=== PATIENT | male | born 1945 ===

== ENCOUNTER → 2019-10-29 | Outpatient (CLI) | payer MEDICARE, OTHER ==
--- NOTE | 2019-10-29 13:01 | MR ---
EXAMINATION TYPE: MR lumbar spine wo con DATE OF EXAM: 10/29/2019 COMPARISON: MRI lumbar spine June 30, 2016 HISTORY: LBP, BLE numbness TECHNIQUE: Multiplanar, multisequence imaging of the lumbar spine is performed without IV contrast. FINDINGS: Sagittal images of the lumbar spine show vertebral body height to remain satisfactory. Pers istent grade 1 anterolisthesis L5 on S1. Multilevel disc desiccation. Persistent moderate disc space narrowing and vacuum disc phenomenon L5-S1 level with Modic type II endplate changes and severe anter ior spurring The conus medullaris is stable in position ending superior L2 level without abnormal sig nal. Stable mild multilevel anterior spurring. Axial images show through T12-L1 and L1-L2 level to appear within normal limits. Axial images at L2-L3 level show mild broad disc bulge without spinal canal is preserved and bilatera l neural foramina are patent. No significant change from prior. Axial images at L3-L4 level show mild broad disc bulge along with mild facet degenerative changes tai aterally. Spinal canal is preserved. Bilateral neural foramina are patent. No significant change from prior. Axial images at L4-L5 level shows moderate broad-based disc bulge along with [id number] facet d egenerative changes and ligamentum flavum hypertrophy. Spinal canal is preserved. Bilateral neural fo ramina are patent. No significant change from prior. Axial images at L5-S1 level show [id number] facet degenerative changes bilaterally. The spondyl olisthesis with broad disc bulge. There is some increased prominence of epidural fat at this level re demonstrated. There is severe bilateral neural foraminal narrowing encroaching on both L5 nerves sagi ttal image 13 on the right and 4 on the left, no significant change from prior. No suspicious incidental retroperitoneal finding. IMPRESSION: Multilevel degenerative change with persistent spondylolisthesis and most prominent degen erative change L5-S1 level where there is focal encroachment on bilateral L5 nerves. No significant c hange or progression from prior MRI.
== END | disposition home or self-care (01) ==
LOC: RADMRIMAIN 12:12
PROVIDERS: ATTEND Physician Assistant Medical
DX: M43.17 Spondylolisthesis, lumbosacral region (principal); M47.817 Spondylosis without myelopathy or radiculopathy, lumbosacral region
CPT/HCPCS: 72148

== ENCOUNTER 2021-10-28 05:39 | Emergency (ER) | payer MEDICARE, OTHER ==
[2021-10-28] MEDS ORDERED: SODIUM CHLORIDE 0.9% 1,000 ML IV STA (06:16)
[2021-10-28] MEDS ORDERED: ACETAMINOPHEN TAB 325 MG TAB PO STA (06:25)
--- NOTE | 2021-10-28 06:27 | ED ---
General Adult HPI - General Source: patient, family Mode of arrival: wheelchair Limitations: no limitations <Luis Marshall - Last Filed: 10/28/21 08:00> <Zaynab Mckeon - Last Filed: 10/29/21 22:34> - General Chief complaint: Weakness Stated complaint: Fall Time Seen by Provider: 10/28/21 06:10 - History of Present Illness Initial comments: 76-year-old male with a past medical history of diabetes mellitus, hyp erlipidemia presents to the emergency room for a chief complaint of this. Family member reports that for the past 2 days patient is weak. He has had 2 falls now. He had another this morning around 3 AM. Around 4 AM his called family to come get him up. States his legs have been weak. No fevers. No other symptoms.Patient has no other complaints at this time including shortness of breath, chest pain, abdominal pain, nausea or vomiting, headache, or visual changes. (Luis Marshall) - Related Data Allergies Allergy/AdvReac Type Severity Reaction Status Date / Time No Known Allergies Allergy Verified 10/28/21 05:48 Review of Systems ROS Other: All systems not noted in ROS Statement are negative. <Luis Marshall - Last Filed: 10/28/21 08:00> ROS Other: All systems not noted in ROS Statement are negative. <Zaynab Mckeon - Last Filed: 10/29/21 22:34> ROS Statement: Those systems with pertinent positive or pertinent negative responses have been documented in the HPI. Past Medical History Past Medical History: Diabetes Mellitus, Hyperlipidemia History of Any Multi-Drug Resistant Organisms: None Reported Additional Past Surgical History / Comment(s): eye surgery Past Psychological History: No Psychological Hx Reported Smoking Status: Former smoker Past Alcohol Use History: Occasional Past Drug Use History: None Reported <Luis Marshall - Last Filed: 10/28/21 08:00> General Exam Limitations: no limitations General appearance: alert, in no apparent distress Head exam: Present: atraumatic Eye exam: Present: normal appearance, PERRL, EOMI. Absent: scleral icterus, conjunctival injection ENT exam: Present: normal exam, mucous membranes moist Neck exam: Present: normal inspection, full ROM. Absent: tenderness Respiratory exam: Present: normal lung sounds bilaterally. Absent: respiratory distress, wheezes Cardiovascular Exam: Present: regular rate, normal rhythm, normal heart sounds GI/Abdominal exam: Present: soft, normal bowel sounds. Absent: distended, tenderness Extremities exam: Present: full ROM (Left knee). Absent: tenderness (L knee), joint swelling <Luis Marshall - Last Filed: 10/28/21 08:00> Course Vital Signs 10/28/21 10/28/21 10/28/21 05:43 06:56 09:14 Temperature 99 F 98.6 F Pulse Rate 111 H 98 88 Respiratory 22 18 18 Rate Blood Pressure 126/66 149/79 137/62 O2 Sat by Pulse 96 97 98 Oximetry Medical Decision Making - Lab Data Result diagrams: 10/28/21 06:04 10/28/21 06:04 <Luis Marshall - Last Filed: 10/28/21 08:00> - Lab Data Result diagrams: 10/28/21 06:04 10/28/21 06:04 <Zaynab Mckeon - Last Filed: 10/29/21 22:34> - Medical Decision Making Vitals are stable. Patient is well-appearing. EKG shows a sinus tachycardia. This did improve throughout his stay. CBC CMP is unremarkable. Actiq as elevated likely secondary to dehydration, patient given a liter of fluid. Positive ketones and urine is also likely secondary to dehydration. COVID-19 is detected. Patient does request antibody infusion. I had a lengthy discussion with family. They are able to care for patient at home. It if patient has worsening symptoms or is having more falls at home he will need to come back to the emergency room. We will try to write a prescription for a walker. They will follow up with primary care. (Luis Marshall) I was available for consultation in the emergency department. The history and physical exam were done by the midlevel provider. I was consulted for this patients care. I reviewed the case with the midlevel provider and based on their presentation of the patient, I agree with the assessment, medical decision making and plan of care as documented. Chart was dictated using [employer] dictation software. Attempts were made to correct any dictation errors however some typographical errors may persist. Patient was seen during a national state of emergency due to the Covid-19 pandemic. (Zaynab Mckeon) - Lab Data Lab Results 10/28/21 10/28/21 10/28/21 Range/Units 06:04 06:04 06:04 WBC 5.5 (3.8-10.6) k/uL RBC 4.93 (4.30-5.90) m/uL Hgb 15.0 (13.0-17.5) gm/dL Hct 45.0 (39.0-53.0) % MCV 91.3 (80.0-100.0) fL MCH 30.4 (25.0-35.0) pg MCHC 33.3 (31.0-37.0) g/dL RDW 13.2 (11.5-15.5) % Plt Count 171 (150-450) k/uL MPV 7.6 Neutrophils % 79 % Lymphocytes % 14 % Monocytes % 6 % Eosinophils % 1 % Basophils % 0 % Neutrophils # 4.4 (1.3-7.7) k/uL Lymphocytes # 0.8 L (1.0-4.8) k/uL Monocytes # 0.3 (0-1.0) k/uL Eosinophils # 0.1 (0-0.7) k/uL Basophils # 0.0 (0-0.2) k/uL PT 10.8 (9.0-12.0) sec INR 1.0 (<1.2) APTT 24.7 (22.0-30.0) sec Sodium 135 L (137-145) mmol/L Potassium 3.9 (3.5-5.1) mmol/L Chloride 98 (98-107) mmol/L Carbon Dioxide 26 (22-30) mmol/L Anion Gap 11 mmol/L BUN 10 (9-20) mg/dL Creatinine 1.00 (0.66-1.25) mg/dL Est GFR (CKD-EPI)AfAm 84 (>60 ml/min/1.73 sqM) Est GFR (CKD-EPI)NonAf 73 (>60 ml/min/1.73 sqM) Glucose 152 H (74-99) mg/dL Lactic Ac Sepsis Rflx Plasma Lactic Acid Sukhwinder (0.7-2.0) mmol/L Calcium 8.5 (8.4-10.2) mg/dL Magnesium 2.0 (1.6-2.3) mg/dL Total Bilirubin 0.8 (0.2-1.3) mg/dL AST 29 (17-59) U/L ALT 22 (4-49) U/L Alkaline Phosphatase 92 (38-126) U/L Creatine Kinase 209 H (55-170) U/L Troponin I (0.000-0.034) ng/mL Total Protein 7.4 (6.3-8.2) g/dL Albumin 4.1 (3.5-5.0) g/dL Urine Color Urine Appearance (Clear) Urine pH (5.0-8.0) Ur Specific Tavernier (1.001-1.035) Urine Protein (Negative) Urine Glucose (UA) (Negative) Urine Ketones (Negative) Urine Blood (Negative) Urine Nitrite (Negative) Urine Bilirubin (Negative) Urine Urobilinogen (<2.0) mg/dL Ur Leukocyte Esterase (Negative) Coronavirus (PCR) (Not Detectd) 10/28/21 10/28/21 10/28/21 Range/Units 06:04 06:04 06:40 WBC (3.8-10.6) k/uL RBC (4.30-5.90) m/uL Hgb (13.0-17.5) gm/dL Hct (39.0-53.0) % MCV (80.0-100.0) fL MCH (25.0-35.0) pg MCHC (31.0-37.0) g/dL RDW (11.5-15.5) % Plt Count (150-450) k/uL MPV Neutrophils % % Lymphocytes % % Monocytes % % Eosinophils % % Basophils % % Neutrophils # (1.3-7.7) k/uL Lymphocytes # (1.0-4.8) k/uL Monocytes # (0-1.0) k/uL Eosinophils # (0-0.7) k/uL Basophils # (0-0.2) k/uL PT (9.0-12.0) sec INR (<1.2) APTT (22.0-30.0) sec Sodium (137-145) mmol/L Potassium (3.5-5.1) mmol/L Chloride (98-107) mmol/L Carbon Dioxide (22-30) mmol/L Anion Gap mmol/L BUN (9-20) mg/dL Creatinine (0.66-1.25) mg/dL Est GFR (CKD-EPI)AfAm (>60 ml/min/1.73 sqM) Est GFR (CKD-EPI)NonAf (>60 ml/min/1.73 sqM) Glucose (74-99) mg/dL Lactic Ac Sepsis Rflx Plasma Lactic Acid Sukhwinder 3.0 H* (0.7-2.0) mmol/L Calcium (8.4-10.2) mg/dL Magnesium (1.6-2.3) mg/dL Total Bilirubin (0.2-1.3) mg/dL AST (17-59) U/L ALT (4-49) U/L Alkaline Phosphatase (38-126) U/L Creatine Kinase (55-170) U/L Troponin I <0.012 (0.000-0.034) ng/mL Total Protein (6.3-8.2) g/dL Albumin (3.5-5.0) g/dL Urine Color Yellow Urine Appearance Clear (Clear) Urine pH 5.0 (5.0-8.0) Ur Specific Tavernier 1.022 (1.001-1.035) Urine Protein Trace H (Negative) Urine Glucose (UA) Negative (Negative) Urine Ketones 1+ H (Negative) Urine Blood Negative (Negative) Urine Nitrite Negative (Negative) Urine Bilirubin Negative (Negative) Urine Urobilinogen <2.0 (<2.0) mg/dL Ur Leukocyte Esterase Negative (Negative) Coronavirus (PCR) (Not Detectd) 10/28/21 10/28/21 Range/Units 07:00 07:34 WBC (3.8-10.6) k/uL RBC (4.30-5.90) m/uL Hgb (13.0-17.5) gm/dL Hct (39.0-53.0) % MCV (80.0-100.0) fL MCH (25.0-35.0) pg MCHC (31.0-37.0) g/dL RDW (11.5-15.5) % Plt Count (150-450) k/uL MPV Neutrophils % % Lymphocytes % % Monocytes % % Eosinophils % % Basophils % % Neutrophils # (1.3-7.7) k/uL Lymphocytes # (1.0-4.8) k/uL Monocytes # (0-1.0) k/uL Eosinophils # (0-0.7) k/uL Basophils # (0-0.2) k/uL PT (9.0-12.0) sec INR (<1.2) APTT (22.0-30.0) sec Sodium (137-145) mmol/L Potassium (3.5-5.1) mmol/L Chloride (98-107) mmol/L Carbon Dioxide (22-30) mmol/L Anion Gap mmol/L BUN (9-20) mg/dL Creatinine (0.66-1.25) mg/dL Est GFR (CKD-EPI)AfAm (>60 ml/min/1.73 sqM) Est GFR (CKD-EPI)NonAf (>60 ml/min/1.73 sqM) Glucose (74-99) mg/dL Lactic Ac Sepsis Rflx Y Plasma Lactic Acid Sukhwinder (0.7-2.0) mmol/L Calcium (8.4-10.2) mg/dL Magnesium (1.6-2.3) mg/dL Total Bilirubin (0.2-1.3) mg/dL AST (17-59) U/L ALT (4-49) U/L Alkaline Phosphatase (38-126) U/L Creatine Kinase (55-170) U/L Troponin I (0.000-0.034) ng/mL Total Protein (6.3-8.2) g/dL Albumin (3.5-5.0) g/dL Urine Color Urine Appearance (Clear) Urine pH (5.0-8.0) Ur Specific Tavernier (1.001-1.035) Urine Protein (Negative) Urine Glucose (UA) (Negative) Urine Ketones (Negative) Urine Blood (Negative) Urine Nitrite (Negative) Urine Bilirubin (Negative) Urine Urobilinogen (<2.0) mg/dL Ur Leukocyte Esterase (Negative) Coronavirus (PCR) Detected A (Not Detectd) Disposition Is patient prescribed a controlled substance at d/c from ED?: No Time of Disposition: 08:00 <Luis Marshall P - Last Filed: 10/28/21 08:00> <Zaynab Mckeon - Last Filed: 10/29/21 22:34> Clinical Impression: COVID-19, Weakness, Dehydration Disposition: HOME SELF-CARE Condition: Good Instructions (If sedation given, give patient instructions): Coronavirus Disease 2019 (COVID-19) Additional Instructions: Please give Motrin and Tylenol for fever or pain. Encourage patient to drink plenty of fluids. Follow up with primary care. Return to the emergency room for any worsening symptoms. Referrals: Rafy Marr III, MD [STAFF PHYSICIAN] - 1-2 days
[2021-10-28 06:45] LABS: Albumin 4.1 g/dL (3.5-5.0); Calcium 8.5 mg/dL (8.4-10.2); Potassium 3.9 mmol/L (3.5-5.1); Total Bilirubin 0.8 mg/dL (0.2-1.3); Total Protein 7.4 g/dL (6.3-8.2)
[2021-10-28 06:46] LABS: Basophils % (A) 0 %; Eosinophils # (A) 0.1 k/uL (0-0.7); Eosinophils % (A) 1 %; Lymphocytes # (A) 0.8 k/uL (1.0-4.8); Lymphocytes % (A) 14 %; MCH 30.4 pg (25.0-35.0); MCHC 33.3 g/dL (31.0-37.0); MCV 91.3 fL (80.0-100.0); Mean Platelet Volume 7.6; Monocytes # (A) 0.3 k/uL (0-1.0); Monocytes % (A) 6 %; Neutrophils # (A) 4.4 k/uL (1.3-7.7); Neutrophils % (A) 79 %; Platelet Count 171 k/uL (150-450); RBC 4.93 m/uL (4.30-5.90); RDW 13.2 % (11.5-15.5); WBC 5.5 k/uL (3.8-10.6)
[2021-10-28 06:51] LABS: Partial Thromboplastin Time 24.7 sec (22.0-30.0); Prothrombin Time 10.8 sec (9.0-12.0)
[2021-10-28 06:57] VITALS: RESP 18
[2021-10-28 06:59] LABS: Appearance,Urine Clear (Clear); Bilirubin,Urine Negative (Negative); Blood,Urine Negative (Negative); Color,Urine Yellow; Glucose,Urine (UA) Negative (Negative); Ketones,Urine 1+ (Negative); Leukocyte Esterase,Urine Negative (Negative); Nitrite,Urine Negative (Negative); Protein,Urine Trace (Negative); Specific Gravity,Urine 1.022 (1.001-1.035); Urobilinogen,Urine <2.0 mg/dL (<2.0)
--- NOTE | 2021-10-28 06:59 | XR ---
EXAMINATION TYPE: XR chest 2V DATE OF EXAM: 10/28/2021 COMPARISON: NONE HISTORY: Weakness TECHNIQUE: 2 view FINDINGS: There is no heart failure or confluent pneumonic infiltrate. Costophrenic angles are fairly clear. There are chest leads. Bony thorax is intact. IMPRESSION: No active cardiopulmonary disease.
--- NOTE | 2021-10-28 07:00 | XR ---
EXAMINATION TYPE: XR knee complete LT DATE OF EXAM: 10/28/2021 COMPARISON: NONE HISTORY: Knee pain TECHNIQUE: 3 views FINDINGS: There is no evidence of fracture nor dislocation. Joint spaces are fairly normal. There is some spurring on the superior patella. IMPRESSION: Mild patellar spurring. No fracture.
[2021-10-28] MEDS ORDERED: BAMLANIVIMAB (EUA) 700 MG, ETESEVIMAB (EUA) 1,400 MG in SODIUM CHLORIDE 0.9% 100 ML IVPB ONE (08:15)
[2021-10-28] MEDS ORDERED: SODIUM CHLORIDE 0.9% 50 ML IVPB ONE (08:15)
[2021-10-28 09:15] VITALS: BP 137/62; PULSE 88; TEMP 98.6
== END 2021-10-28 10:08 | disposition home or self-care (01) ==
LOC: EC 05:39
DX: U07.1 COVID-19 (principal); R53.1 Weakness; E86.0 Dehydration; E11.9 Type 2 diabetes mellitus without complications; E78.5 Hyperlipidemia, unspecified; Z87.891 Personal history of nicotine dependence
CPT/HCPCS: 99285; M0245; 36415; 71046; 80053; 81003; 82550; 83605; 83735; 84484; 85025; 85610; 85730; 87635; 93005

== ENCOUNTER 2024-02-19 20:12 | Observation (INO) | payer MEDICARE, OTHER ==
[2024-02-19 20:31] LABS: Glucose,Whole Blood 134 mg/dL (70-110)
--- NOTE | 2024-02-19 20:36 | ED ---
Neuro HPI - General Chief Complaint: Neuro Symptoms/Deficit Stated Complaint: Possible stroke Time Seen by Provider: 02/19/24 20:28 Source: patient, family, RN notes reviewed, old records reviewed Mode of arrival: ambulatory Limitations: language barrier - History of Present Illness Is the patient presenting with stroke symptoms?: Yes -: hour(s) Initial Comments: This is a 78-year-old male to the ER for evaluation patient presents today for possible CVA. Patient was noted by family that after he went to the bathroom tonight he began to have slurred speech and altered mental status. Patient symptoms are improving on arrival to the ER does have history of high blood pressure and high cholesterol no prior history of CVA Location: speech, dysarthria, altered, other (Confusion) History of same: No Place: home Severity: mild Quality: weak, numb Improves With: time Worsens With: none Context: sudden onset Associated Symptoms: confusion - Related Data Allergies/Adverse Reactions: Allergies Allergy/AdvReac Type Severity Reaction Status Date / Time No Known Allergies Allergy Verified 10/28/21 05:48 Review of Systems ROS Statement: Those systems with pertinent positive or pertinent negative responses have been documented in the HPI. ROS Other: All systems not noted in ROS Statement are negative. General Exam Limitations: language barrier General appearance: alert, in no apparent distress Head exam: Present: atraumatic, normocephalic, normal inspection Eye exam: Present: normal appearance, PERRL, EOMI. Absent: scleral icterus, con junctival injection, periorbital swelling ENT exam: Present: normal exam, mucous membranes moist Neck exam: Present: normal inspection. Absent: tenderness, meningismus, lymphadenopathy Respiratory exam: Present: normal lung sounds bilaterally. Absent: respiratory distress, wheezes, rales, rhonchi, stridor Cardiovascular Exam: Present: regular rate, normal rhythm, normal heart sounds. Absent: systolic murmur, diastolic murmur, rubs, gallop, clicks GI/Abdominal exam: Present: soft, normal bowel sounds. Absent: distended, tenderness, guarding, rebound, rigid Extremities exam: Present: normal inspection, full ROM, normal capillary refill. Absent: tenderness, pedal edema, joint swelling, calf tenderness Back exam: Present: normal inspection Neurological exam: Present: alert, oriented X3, CN II-XII intact Psychiatric exam: Present: normal affect, normal mood Skin exam: Present: warm, dry, intact, normal color. Absent: rash Stroke MDM - Lab Data Result diagrams: 02/19/24 20:31 02/19/24 20:31 Lab Results 02/19/24 02/19/24 02/19/24 Range/Units 20:29 20:31 20:31 WBC 8.2 (3.8-10.6) k/uL RBC 5.53 (4.30-5.90) m/uL Hgb 16.3 (13.0-17.5) gm/dL Hct 49.5 (39.0-53.0) % MCV 89.4 (80.0-100.0) fL MCH 29.4 (25.0-35.0) pg MCHC 32.9 (31.0-37.0) g/dL RDW 13.3 (11.5-15.5) % Plt Count 193 (150-450) k/uL MPV 7.4 Neutrophils % 63 % Lymphocytes % 28 % Monocytes % 4 % Eosinophils % 3 % Basophils % 1 % Neutrophils # 5.2 (1.3-7.7) k/uL Lymphocytes # 2.3 (1.0-4.8) k/uL Monocytes # 0.4 (0-1.0) k/uL Eosinophils # 0.2 (0-0.7) k/uL Basophils # 0.1 (0-0.2) k/uL PT 11.2 (10.0-12.5) sec INR 1.0 (<1.2) APTT 25.2 (22.0-30.0) sec Sodium (137-145) mmol/L Potassium (3.5-5.1) mmol/L Chloride (98-107) mmol/L Carbon Dioxide (22-30) mmol/L Anion Gap mmol/L BUN (9-20) mg/dL Creatinine (0.66-1.25) mg/dL Est GFR (CKD-EPI)AfAm (>60 ml/min/1.73 sqM) Est GFR (CKD-EPI)NonAf (>60 ml/min/1.73 sqM) Glucose (74-99) mg/dL POC Glucose (mg/dL) 134 H (70-110) mg/dL POC Glu [employer] Buyer ID Pedro, Priyank Calcium (8.4-10.2) mg/dL Total Bilirubin (0.2-1.3) mg/dL AST (17-59) U/L ALT (4-49) U/L Alkaline Phosphatase (38-126) U/L Creatine Kinase (55-170) U/L Troponin I (0.000-0.034) ng/mL Total Protein (6.3-8.2) g/dL Albumin (3.5-5.0) g/dL 02/19/24 02/19/24 Range/Units 20:31 20:31 WBC (3.8-10.6) k/uL RBC (4.30-5.90) m/uL Hgb (13.0-17.5) gm/dL Hct (39.0-53.0) % MCV (80.0-100.0) fL MCH (25.0-35.0) pg MCHC (31.0-37.0) g/dL RDW (11.5-15.5) % Plt Count (150-450) k/uL MPV Neutrophils % % Lymphocytes % % Monocytes % % Eosinophils % % Basophils % % Neutrophils # (1.3-7.7) k/uL Lymphocytes # (1.0-4.8) k/uL Monocytes # (0-1.0) k/uL Eosinophils # (0-0.7) k/uL Basophils # (0-0.2) k/uL PT (10.0-12.5) sec INR (<1.2) APTT (22.0-30.0) sec Sodium 136 L (137-145) mmol/L Potassium 4.2 (3.5-5.1) mmol/L Chloride 99 (98-107) mmol/L Carbon Dioxide 29 (22-30) mmol/L Anion Gap 8 mmol/L BUN 10 (9-20) mg/dL Creatinine 0.76 (0.66-1.25) mg/dL Est GFR (CKD-EPI)AfAm >90 (>60 ml/min/1.73 sqM) Est GFR (CKD-EPI)NonAf 88 (>60 ml/min/1.73 sqM) Glucose 147 H (74-99) mg/dL POC Glucose (mg/dL) (70-110) mg/dL POC Glu Fashion Buyer ID Calcium 9.0 (8.4-10.2) mg/dL Total Bilirubin 0.4 (0.2-1.3) mg/dL AST 22 (17-59) U/L ALT 19 (4-49) U/L Alkaline Phosphatase 123 (38-126) U/L Creatine Kinase 68 (55-170) U/L Troponin I <0.012 (0.000-0.034) ng/mL Total Protein 7.0 (6.3-8.2) g/dL Albumin 4.1 (3.5-5.0) g/dL - NIH Stroke Scale 1a. Level of Consciousness: (0) alert 1b. LOC Questions: (0) answers correctly 1c. LOC Commands: (0) performs tasks correctly 2. Best Gaze: (0) normal 3. Visual: (0) no visual loss 4. Facial Palsy: (0) normal symmetrical movement 5a. Motor Arm Left: (0) no drift 5b. Motor Arm Right: (0) no drift 6a. Motor Leg Left: (0) no drift 6b. Motor Leg Right: (0) no drift 7. Limb Ataxia: (0) absent 8. Sensory: (0) normal 9. Best Language: (0) no aphasia 10. Dysarthria: (0) normal 11. Extinction/Inattention: (0) no abnormality - Thrombolytic Inclusion/Exclusion Thrombolytic Inclusion Criteria: Symptom Onset < 4.5 h - Medical Decision Making 78 male with hide cholesterol diabetes coming in for slurred speech with confusion. Patient has improvement and resolution of symptoms here in the ER normal imaging but will be admitted for further evaluation, no recommendations by neuro interventionalists - Radiology Data Radiology results: report reviewed (ET brain CTA head neck negative for acute disease), image reviewed - EKG Data -: EKG Interpreted by Me (EKG is sinus tachycardia 106 GA 191 QRS 84 QTc 476) Past Medical History Past Medical History: Diabetes Mellitus, Hyperlipidemia History of Any Multi-Drug Resistant Organisms: None Reported Additional Past Surgical History / Comment(s): eye surgery Past Psychological History: No Psychological Hx Reported Smoking Status: Former smoker Past Alcohol Use History: Occasional Past Drug Use History: None Reported Course Vital Signs 02/19/24 02/19/24 02/19/24 20:15 20:28 20:38 Temperature 98.4 F Pulse Rate 77 104 H 100 Respiratory 18 20 19 Rate Blood Pressure 180/89 165/117 140/81 O2 Sat by Pulse 97 98 97 Oximetry 02/19/24 02/19/24 02/19/24 21:06 21:20 21:40 Temperature Pulse Rate 107 H 87 98 Respiratory 18 18 18 Rate Blood Pressure 149/87 138/107 144/82 O2 Sat by Pulse 96 97 97 Oximetry 02/19/24 02/19/24 02/19/24 21:50 22:00 22:10 Temperature Pulse Rate 98 100 97 Respiratory 18 18 19 Rate Blood Pressure 144/77 141/79 O2 Sat by Pulse 96 98 97 Oximetry 02/19/24 22:20 Temperature Pulse Rate 96 Respiratory 19 Rate Blood Pressure 151/72 O2 Sat by Pulse 99 Oximetry - Reevaluation(s) Reevaluation #1: 02/19/24 23:23 Medical records reviewed Reevaluation #2: 02/19/24 23:23 Patient symptom remained improved Reevaluation #3: 02/19/24 23:23 Patient and family informed of results questions answered prefer observation Reevaluation #4: 02/19/24 23:23 Was pt. sent in by a medical professional or institution (, PA, READING PROFESSOR, urgent care, hospital, or alf...) When possible be specific @ -no Did you speak to anyone other than the patient for history (EMS, parent, family, police, friend...)? What history was obtained from this source @ -no Did you review nursing and triage notes (agree or disagree)? Why? @ -agree Are old charts reviewed (outside hosp., previous admission, EMS record, old EKG, old radiological studies, urgent care reports/EKG's, alf records)? Report findings @ -yes Differential Diagnosis (chest pain, altered mental status, abdominal pain women, abdominal pain men, vaginal bleeding, weakness, fever, dyspnea, syncope, headache, dizziness, GI bleed, back pain, seizure, CVA, palpatations, mental health, musculoskeletal)? @ -prior EKG interpreted by me (3pts min.). @ -yes X-rays interpreted by me (1pt min.). @ -yes negative for acute disease CT interpreted by me (1pt min.). @ -no U/S interpreted by me (1pt. min.). @ -no What testing was considered but not performed or refused? (CT, X-rays, U/S, labs)? Why? @ -none What meds were considered but not given or refused? Why? @ -none Did you discuss the management of the patient with other professionals (professionals i.e. , PA, READING PROFESSOR, lab, RT, psych nurse, child protective services social worker, master technician, teacher, custody officer, counseling case manager)? Give summary @ -no Was smoking cessation discussed for >3mins.? @ -no Was critical care preformed (if so, how long)? @ -no Were there social determinants of health that impacted care today? How? (Homelessness, low income, unemployed, alcoholism, drug addiction, transportation, low edu. Level, literacy, decrease access to med. care, intermediate, rehab)? @ -none Was there de-escalation of care discussed even if they declined (Discuss DNR or withdrawal of care, Hospice)? DNR status @ -no What co-morbidities impacted this encounter? (DM, HTN, Smoking, COPD, CAD, Cancer, CVA, ARF, Chemo, Hep., AIDS, mental health diagnosis, sleep apnea, morbid obesity)? @ -none Was patient admitted / discharged? Hospital course, mention meds given and route, prescriptions, significant lab abnormalities, going to OR and other pertinent info. @ - Undiagnosed new problem with uncertain prognosis? @ -no Drug Therapy requiring intensive monitoring for toxicity (Heparin, Nitro, Insulin, Cardizem)? @ -no Were any procedures done? @ -no Diagnosis/symptom? @ - Acute, or Chronic, or Acute on Chronic? @ -Acute Uncomplicated (without systemic symptoms) or Complicated (systemic symptoms)? @ -Complicated Side effects of treatment? @ -no Exacerbation, Progression, or Severe Exacerbation? @ -exacerbation Poses a threat to life or bodily function? How? (Chest pain, USA, OR, pneumonia, PE, COPD, DKA, ARF, appy, cholecystitis, CVA, Diverticulitis, Homicidal, Suicidal, threat to staff... and all critical care pts) @ -yes Reevaluation #5: Differential CVA Ischemic stroke, hemorrhagic stroke, brain tumor, atypical migraine, Wernicke's encephalopathy, seizure, multiple sclerosis, meningitis, encephalitis, hypoglycemia, Guillain-Ramirez, electrolytes disturbance, myasthenia gravis.... This is not meant to be an all-inclusive list - Consultations Consultation #1: Spoke with EM who agrees to admit this patient Consultation #2: Spoke with neuro interventionalists on-call who recommend no recommendations Critical Care Time Critical Care Time: Yes Total Critical Care Time: 31 Disposition Clinical Impression: Transient cerebral ischemia Disposition: ADMITTED IP TO THIS [facility] Condition: Serious Is patient prescribed a controlled substance at d/c from ED?: No Referrals: None,Stated [Primary Care Provider] - 1-2 days Time of Disposition: 22:30
[2024-02-19] MEDS: SODIUM CHLORIDE 0.9% 1,000 ML IV STA (20:40)
[2024-02-19 20:44] LABS: Basophils # (A) 0.1 k/uL (0-0.2); Basophils % (A) 1 %; Eosinophils # (A) 0.2 k/uL (0-0.7); Eosinophils % (A) 3 %; HCT 49.5 % (39.0-53.0); HGB 16.3 gm/dL (13.0-17.5); Lymphocytes # (A) 2.3 k/uL (1.0-4.8); Lymphocytes % (A) 28 %; MCH 29.4 pg (25.0-35.0); MCHC 32.9 g/dL (31.0-37.0); MCV 89.4 fL (80.0-100.0); Mean Platelet Volume 7.4; Monocytes # (A) 0.4 k/uL (0-1.0); Monocytes % (A) 4 %; Neutrophils # (A) 5.2 k/uL (1.3-7.7); Neutrophils % (A) 63 %; Platelet Count 193 k/uL (150-450); RBC 5.53 m/uL (4.30-5.90); RDW 13.3 % (11.5-15.5); WBC 8.2 k/uL (3.8-10.6)
[2024-02-19 20:53] LABS: Partial Thromboplastin Time 25.2 sec (22.0-30.0); Prothrombin Time 11.2 sec (10.0-12.5)
--- NOTE | 2024-02-19 21:03 | CT ---
EXAMINATION TYPE: CT brain wo con DATE OF EXAM: 02/19/2024 COMPARISON: None HISTORY: Neuro deficit, acute, stroke suspected CT DLP: 1246.6 mGycm Automated exposure control for dose reduction was used. Findings: The ventricles, basal cisterns and sulci over the convexities are within normal limits for the patien t's age and there is no mass effect or shift of midline structures. There is mild to moderate diffuse decreased density in the periventricular white matter consistent wi th chronic ischemic white matter demyelination. There is mild punctate calcification of the basal lj glia.. There is no acute intra or extra-axial hemorrhage. The posterior fossa including the brainstem, fourth ventricle and cerebellar pontine angles appear no rmal. Intraorbital contents appear normal and symmetric. Visualized paranasal sinuses and mastoid air cells are well aerated. The calvarium is intact. IMPRESSION: 1. No acute bleed or mass effect. 2. Mild to moderate age-appropriate senescent changes.
--- NOTE | 2024-02-19 21:11 | XR ---
EXAMINATION TYPE: XR chest 2V DATE OF EXAM: 02/19/2024 COMPARISON: 10/28/2021 HISTORY: Altered mental status TECHNIQUE: Frontal and lateral views of the chest are obtained. FINDINGS: There is no focal air space opacity, pleural effusion, or pneumothorax seen. The cardiac silhouette size is within normal limits. The osseous structures are intact. IMPRESSION: No acute cardiopulmonary process.
--- NOTE | 2024-02-19 21:29 | CT ---
EXAMINATION TYPE: CT angio head neck DATE OF EXAM: 02/19/2024 HISTORY: Neuro deficit, acute, stroke suspected. left side facial droop, slurred speech COMPARISON: None CT DLP: 491.7 mGycm. Automated Exposure Control for Dose Reduction was Utilized. TECHNIQUE: CTA scan of the head and neck is performed with IV Contrast, patient injected with 65ml m L of Isovue 300, axial images are obtained, coronal and sagittal reformatted images are reviewed. 3D reconstructed images are created on an independent workstation and reviewed. FINDINGS: The brachiocephalic origins are widely patent and no significant stenosis. There is no significant stenosis of the common or internal carotid arteries within the neck. There is no stenosis of the vertebral arteries. Intracranially, there is no stenosis, segmental occlusion, sizable aneurysm sac or vascular malformat ion. IMPRESSION:. No significant abnormality seen. NASCET criteria was used in interpretation of this exam?
[2024-02-19 21:36] LABS: ALT 19 U/L (4-49); AST 22 U/L (17-59); African American GFR (CKD) >90 (>60 ml/min/1.73 sqM); Albumin 4.1 g/dL (3.5-5.0); Alkaline Phosphatase 123 U/L (38-126); Anion Gap 8 mmol/L; Blood Urea Nitrogen 10 mg/dL (9-20); Carbon Dioxide 29 mmol/L (22-30); Chloride 99 mmol/L (98-107); Creatine Kinase 68 U/L (55-170); Glucose 147 mg/dL (74-99); Non-African American GFR(CKD) 88 (>60 ml/min/1.73 sqM); Potassium 4.2 mmol/L (3.5-5.1); Sodium 136 mmol/L (137-145); Total Bilirubin 0.4 mg/dL (0.2-1.3)
[2024-02-19] MEDS: ASPIRIN 325 MG TAB PO STA (23:00)
[2024-02-19] MEDS: SODIUM CHLORIDE 0.9% 1,000 ML IV SCH (23:01)
[2024-02-20] MEDS: ASPIRIN 325 MG TAB PO SCH (08:47)
[2024-02-20] MEDS ORDERED: DEXTROSE 50% SYRINGE 50 ML IVP PRN ×2 (10:06)
[2024-02-20 10:12] LABS: Glucose,Whole Blood 105 mg/dL (70-110)
[2024-02-20 11:52] LABS: Glucose,Whole Blood 112 mg/dL (70-110)
[2024-02-20] MEDS: INSULIN ASPART (NovoLOG) 100 UNIT/ML VIAL SQ SCH (11:52)
--- NOTE | 2024-02-20 12:48 | P.HPIM ---
History of Present Illness Patient presented with symptoms of slurred speech and altered mental status that lasted for about 10 minutes without any visual, hearing problems, weakness or sensory deficits. Patient takes statin at home his LDL is 48 does not smoke does not take any aspirin at home. Patient denied any fever chills headache photophobia. REVIEW OF SYSTEMS: CONSTITUTIONAL: No fever, no malaise, no fatigue. HEENT: No recent visual problems or hearing problems. Denied any sore throat. CARDIOVASCULAR: No chest pain, orthopnea, PND, no palpitations, no syncope. PULMONARY: No shortness of breath, no cough, no hemoptysis. GASTROINTESTINAL: No diarrhea, no nausea, no vomiting, no abdominal pain. NEUROLOGICAL: No headaches, no weakness, no numbness. HEMATOLOGICAL: Denies any bleeding or petechiae. GENITOURINARY: Denies any burning micturition, frequency, or urgency. MUSCULOSKELETAL/RHEUMATOLOGICAL: Denies any joint pain, swelling, or any muscle pain. ENDOCRINE: Denies any polyuria or polydipsia. The rest of the 14-point review of systems is negative. PHYSICAL EXAMINATION: GENERAL: The patient is alert and oriented x3, not in any acute distress. Well developed, well nourished. HEENT: Pupils are round and equally reacting to light. EOMI. No scleral icterus. No conjunctival pallor. Normocephalic, atraumatic. No pharyngeal erythema. No thyromegaly. CARDIOVASCULAR: S1 and S2 present. No murmurs, rubs, or gallops. PULMONARY: Chest is clear to auscultation, no wheezing or crackles. ABDOMEN: Soft, nontender, nondistended, normoactive bowel sounds. No palpable organomegaly. MUSCULOSKELETAL: No joint swelling or deformity. EXTREMITIES: No cyanosis, clubbing, or pedal edema. NEUROLOGICAL: No focal deficits were appreciated SKIN: No rashes. Assessment and plan -Possible TIA: Patient is undergoing evaluation for TIA so far CT angio of the head and neck and CT of the head are essentially within normal limits. N eurology evaluate the patient with recommending MRI and echocardiogram. Patient takes Lipitor at home and 81 mg of aspirin will be added after 24 hours of telemetry monitoring patient probably can be discharged maybe later today or earlier tomorrow patient's TIA was at 7 PM last night. -Hyperlipidemia -Diabetes mellitus: Hold off metformin, start on sliding scale insulin DVT prophylaxis: ambulation Past Medical History Past Medical History: Diabetes Mellitus, Hyperlipidemia History of Any Multi-Drug Resistant Organisms: None Reported Additional Past Surgical History / Comment(s): eye surgery Past Psychological History: No Psychological Hx Reported Smoking Status: Former smoker Past Alcohol Use History: Occasional Past Drug Use History: None Reported Medications and Allergies Home Medications Medication Instructions Recorded Confirmed Type Aspirin 81 mg PO DAILY #30 tab 02/20/24 Rx Atorvastatin [Lipitor] 10 mg PO HS 02/20/24 02/20/24 History Cyclobenzaprine [Flexeril] 5 mg PO DAILY 02/20/24 02/20/24 History Loratadine [Claritin] 10 mg PO DAILY 02/20/24 02/20/24 History Pregabalin [Lyrica] 75 mg PO DAILY 02/20/24 02/20/24 History metFORMIN HCL ER [Glucophage XR] 500 mg PO AC-BID 02/20/24 02/20/24 History Allergies Allergy/AdvReac Type Severity Reaction Status Date / Time No Known Allergies Allergy Verified 10/28/21 05:48 Physical Exam Vitals: Vital Signs Temp Pulse Resp BP Pulse Ox 02/20/24 11:51 78 18 126/76 98 02/20/24 10:09 98.0 F 82 17 136/77 99 02/20/24 09:01 77 19 141/72 97 02/20/24 08:50 97.9 F 81 20 137/74 98 02/20/24 06:00 80 19 130/74 02/20/24 05:30 79 18 144/76 96 02/20/24 05:00 84 16 139/101 94 L 02/20/24 04:00 81 18 130/66 02/20/24 03:00 84 18 127/67 96 02/20/24 02:40 91 21 127/67 96 02/20/24 02:30 86 13 120/79 96 02/20/24 02:20 120/79 98 02/20/24 02:10 92 120/79 97 02/20/24 02:00 89 129/69 02/20/24 01:50 84 129/69 94 L 02/20/24 01:40 91 129/69 95 02/20/24 01:30 88 118/62 97 02/20/24 01:20 97 118/62 96 02/20/24 01:10 118/62 94 L 02/20/24 01:00 96 19 160/100 95 02/20/24 00:30 114 H 18 105/66 98 02/20/24 00:00 95 19 144/77 96 02/19/24 23:30 99 18 160/86 98 02/19/24 23:00 100 18 135/74 98 02/19/24 22:30 95 18 151/72 98 02/19/24 22:20 96 19 151/72 99 02/19/24 22:10 97 19 141/79 97 02/19/24 22:00 100 18 98 02/19/24 21:50 98 18 144/77 96 02/19/24 21:40 98 18 144/82 97 02/19/24 21:20 87 18 138/107 97 02/19/24 21:06 107 H 18 149/87 96 02/19/24 20:38 100 19 140/81 97 02/19/24 20:28 104 H 20 165/117 98 02/19/24 20:15 98.4 F 77 18 180/89 97 Intake and Output 02/19/24 02/20/24 02/20/24 22:59 06:59 14:59 Other: Weight 104.326 kg Results CBC & Chem 7: 02/19/24 20:31 02/19/24 20:31 Labs: Abnormal Lab Results - Last 24 Hours (Table) 02/19/24 02/19/24 02/20/24 Range/Units 20:29 20:31 11:50 Sodium 136 L (137-145) mmol/L Glucose 147 H (74-99) mg/dL POC Glucose (mg/dL) 134 H 112 H (70-110) mg/dL
--- NOTE | 2024-02-20 13:02 | P.CNNES ---
History of Present Illness Consult date: 02/20/24 Requesting physician: Garry Rolon Reason for Consult: tia History of Present Illness: this is a 78-year-old gentleman who presented emergency department becausedifficulty. History is obtained from the patient's osowsryp-pj-ldn was at bedside. Patient is [place] speaking and his [id number] help with some of the translation. It seems yesterday around 7 is p.m. patient was talking gibberish not making any sense and the episode lasted 10-15 minutes. Also he had the brief slight worsening of low left lower extremity weakness which also improved the same time. Otherwise no additional neurological workup. He feels back to baseline. He denies any history of stroke. He has history of diabetes and hypercholesterolemia. He is not on any antiplatelets per family members but he is on statin. Some of the workup during his hospital visit consisted of: glucose is 147 lipid panel is triglyceride of 104, cholesterol is 113, LDLs 43 and HDL is [address] head is reported as no acute bleed or mass effect. Mild to moderate age appropriate senescent changes. I personally reviewed the CT and I agree there is no acute or subacute changes. CT angiography of the head and neck was reported as no significant abnormality seen. per ED physician NIH stroke scale was a 0. Code stroke was activated and it's documented the no recommendation by neuro- interventional last. I assume no IV thrombolytic since the patient's symptoms is resolved and the risk outweighed the benefit. Review of Systems Review of system: The 12 point system was reviewed and apparent positive and negative per HPI. Past Medical History Past Medical History: Diabetes Mellitus, Hyperlipidemia History of Any Multi-Drug Resistant Organisms: None Reported Additional Past Surgical History / Comment(s): eye surgery Past Psychological History: No Psychological Hx Reported Smoking Status: Former smoker Past Alcohol Use History: Occasional Past Drug Use History: None Reported Medications and Allergies Home Medications Medication Instructions Recorded Confirmed Type Aspirin 81 mg PO DAILY #30 tab 02/20/24 Rx Atorvastatin [Lipitor] 10 mg PO HS 02/20/24 02/20/24 History Cyclobenzaprine [Flexeril] 5 mg PO DAILY 02/20/24 02/20/24 History Loratadine [Claritin] 10 mg PO DAILY 02/20/24 02/20/24 History Pregabalin [Lyrica] 75 mg PO DAILY 02/20/24 02/20/24 History metFORMIN HCL ER [Glucophage XR] 500 mg PO AC-BID 02/20/24 02/20/24 History Allergies Allergy/AdvReac Type Severity Reaction Status Date / Time No Known Allergies Allergy Verified 10/28/21 05:48 Physical Examination - Vital Signs Vital Signs: Vital Signs Temp Pulse Resp BP Pulse Ox 02/20/24 11:51 78 18 126/76 98 02/20/24 10:09 98.0 F 82 17 136/77 99 02/20/24 09:01 77 19 141/72 97 02/20/24 08:50 97.9 F 81 20 137/74 98 02/20/24 06:00 80 19 130/74 02/20/24 05:30 79 18 144/76 96 02/20/24 05:00 84 16 139/101 94 L 02/20/24 04:00 81 18 130/66 02/20/24 03:00 84 18 127/67 96 02/20/24 02:40 91 21 127/67 96 02/20/24 02:30 86 13 120/79 96 02/20/24 02:20 120/79 98 02/20/24 02:10 92 120/79 97 02/20/24 02:00 89 129/69 02/20/24 01:50 84 129/69 94 L 02/20/24 01:40 91 129/69 95 02/20/24 01:30 88 118/62 97 02/20/24 01:20 97 118/62 96 02/20/24 01:10 118/62 94 L 02/20/24 01:00 96 19 160/100 95 02/20/24 00:30 114 H 18 105/66 98 02/20/24 00:00 95 19 144/77 96 02/19/24 23:30 99 18 160/86 98 02/19/24 23:00 100 18 135/74 98 02/19/24 22:30 95 18 151/72 98 02/19/24 22:20 96 19 151/72 99 02/19/24 22:10 97 19 141/79 97 02/19/24 22:00 100 18 98 02/19/24 21:50 98 18 144/77 96 02/19/24 21:40 98 18 144/82 97 02/19/24 21:20 87 18 138/107 97 02/19/24 21:06 107 H 18 149/87 96 02/19/24 20:38 100 19 140/81 97 02/19/24 20:28 104 H 20 165/117 98 02/19/24 20:15 98.4 F 77 18 180/89 97 Intake and Output 02/19/24 02/20/24 02/20/24 22:59 06:59 14:59 Other: Weight 104.326 kg GENERAL: The patient is lying in bed and is not in acute distress. NEUROLOGICAL: His iixsylyp-e-ijc helped with translation. Higher mental function: The patient is awake, alert, oriented to self, place and time. Patient is following commands. No aphasia and no neglect. Cranial nerves: The pupils are round, equal and reactive to light. Visual dumont are full to confrontation throughout. Extraocular movement is intact no nystagmus is noted. Facial sensation is normal to touch throughout. The facial strength is normal throughout. Hearing is mildly decreased bilaterally to hand rub. Tongue is midline and moved nosn-ka-[id number] without any difficulty. No dysa rthria is noted. Shoulder shrug is normal bilaterally. Motor: The strength is 5 over 5 throughout. Normal tone and bulk. Cerebellum: Normal finger to nose heel to chin bilaterally. Sensation: Sensation is normal to touch throughout. Reflexes (right/left):1+ Plantars are mute bilaterally. Results - Laboratory Findings CBC and BMP: 02/19/24 20:31 02/19/24 20:31 Abnormal Lab Findings: Abnormal Labs 02/19/24 02/19/24 02/20/24 20:29 20:31 11:50 Sodium 136 L Glucose 147 H POC Glucose (mg/dL) 134 H 112 H Assessment and Plan Assessment: This is a 78-year-old gentleman who presents because of the speech difficulty and per family members his speech was gibberish yesterday at 7 PM and that lasted for 10-15 minutes and had worsening of the left lower extremity weakness which the symptoms has resolved. Likely TIA underlying diabetes mellitus Hypercholesteremia Plan: I ordered MRI of the brain 2-D echo was ordered and is pending. Hemoglobin A1c is ordered patient was started on aspirin 325 daily by the ED team. I also added Plavix 75 mg daily. Patient was not any antiplatelet prior to this per family members. Patient was started on the Lipitor 80 mg daily at bedtime and I decreased it down to 40 mg for signature prophylaxis. Continue neuro checks Cardiac monitoring PT OT and STEEPLECHASE JOCKEY are consulted we'll defer the rest of the medical measure the primary team and other specialists For DVT prophylaxis I started the patient on subcu heparin 5000 units every 12 hours The plan was discussed with the patient and family members. Thank you for the consultation. Time with Patient: Greater than 30
[2024-02-20] MEDS: PREGABALIN 75 MG CAP PO SCH (14:28)
[2024-02-20] MEDS: CLOPIDOGREL 75 MG TAB PO SCH (14:28)
--- NOTE | 2024-02-20 15:14 | CA ---
Transthoracic Echo Report Name: Hernandez Luis Age: 78 Gender: M : 1945 Exam Date: 02/20/2024 08:53 Exam Location: [facility] Ht (in): 69 Wt (lb): 230 Ordering Physician: Israel Kirk MD Attending/Referring Phys: Tati Potter MD [employer] Rhina Trevino, KAYLEIGH Procedure CPT: Indications: Slurred speech, CVA Cardiac Hx: Technical Quality: Fair Contrast 1: Total Dose (mL): Contrast 2: Total Dose (mL): MEASUREMENTS (Male / Female) Normal Values 2D ECHO LV Diastolic Diameter PLAX 4.6 cm 4.2 - 5.9 / 3.9 - 5.3 cm LV Systolic Diameter PLAX 3.7 cm IVS Diastolic Thickness 0.9 cm 0.6 - 1.0 / 0.6 - 0.9 cm LVPW Diastolic Thickness 1.2 cm 0.6 - 1.0 / 0.6 - 0.9 cm LV Relative Wall Thickness 0.5 RV Internal Dim ED PLAX 2.6 cm LVOT Diameter 1.9 cm Aortic Root Diameter 3.7 cm LA Systolic Diameter LX 3.8 cm 3.0 - 4.0 / 2.7 - 3.8 cm LV Diastolic Volume MOD BP 55.6 cm??? 67 - 155 / 56 - 104 cm??? LV Systolic Volume MOD BP 28.2 cm??? 22 - 58 / 19 - 49 cm??? LV Ejection Fraction MOD BP 49.4 % >= 55 % LV Diastolic Volume MOD 4C 62.5 cm??? LV Systolic Volume MOD 4C 30.4 cm??? LV Ejection Fraction MOD 4C 51.4 % LV Diastolic Length 4C 7.0 cm LV Systolic Length 4C 5.8 cm LV Diastolic Volume MOD 2C 49.8 cm??? LV Systolic Volume MOD 2C 23.8 cm??? LV Ejection Fraction MOD 2C 52.3 % LV Diastolic Length 2C 7.2 cm LV Systolic Length 2C 6.0 cm LA Volume 52.2 cm??? 18 - 58 / 22 - 52 cm??? LA Volume Index 22.8 cm???/m??? 16 - 28 cm???/m??? Ascending Aorta Diameter 3.2 cm M-MODE Aortic Root Diameter MM 3.4 cm LA Systolic Diameter MM 2.5 cm LA Ao Ratio MM 0.7 AV Cusp Separation MM 1.3 cm DOPPLER AV Peak Velocity 104.2 cm/s AV Peak Gradient 4.3 mmHg MV Area PHT 2.4 cm??? Mitral E Point Velocity 65.2 cm/s Mitral A Point Velocity 82.5 cm/s Mitral E to A Ratio 0.8 MV Deceleration Time 311.9 ms TR Peak Velocity 183.6 cm/s TR Peak Gradient 13.5 mmHg Right Ventricular Systolic Press 18.5 mmHg FINDINGS Left Ventricle Left ventricular ejection fraction is estimated at 55-60 %. Normal Left ventricular size, wall thickness, systolic function with no obvious regional wall motion abnormalities. Normal Left ventricular diastolic filling pattern. Right Ventricle Normal right ventricular size and function. Right ventricular systolic pressure within normal limits. Right Atrium Normal right atrial size. Left Atrium Normal left atrial size. Mitral Valve Structurally normal mitral valve. Trace to mild mitral regurgitation. Aortic Valve Aortic valve not well visualized. Diffuse thickening (sclerosis) of the aortic valve cusps without reduced excursion. No aortic regurgitation. Tricuspid Valve Structurally normal tricuspid valve. Mild tricuspid regurgitation. Pulmonic Valve Structurally normal pulmonic valve. Trace pulmonic regurgitation. Pericardium No pericardial or pleural effusion. Aorta Mildly dilated aortic annulus. CONCLUSIONS Normal LV size and systolic function Previewed by: Dr. Aime Pleitez MD (Electronically Signed) Final Date: 20 February 2024 15:13
[2024-02-20] MEDS: LORazepam 2 MG/ML INJ IV STA (16:21)
[2024-02-20 17:14] LABS: Glucose,Whole Blood 102 mg/dL (70-110)
--- NOTE | 2024-02-20 19:05 | MR ---
EXAMINATION TYPE: MR brain wo con DATE OF EXAM: 02/20/2024 COMPARISON: CT brain 02/19/2024 HISTORY: Stroke, dysarthria CONTRAST: Performed utilizing 0 mL intravenous Gadavist gadolinium contrast. TECHNIQUE: Multiplanar, multiecho imaging on a 3.0 Irish magnet is performed through the brain. Stud y is performed within 24 hours of arrival to the hospital. The craniovertebral junction is normal. The pituitary is normal. Diffusion-weighted imaging is performed. No abnormal hyperintensity is present to suggest an acute i ntracranial infarct or acute ischemic change. There is mild periventricular white matter hyperintensity, likely on the basis of chronic white matte r ischemic changes. Ventricles and sulci are mildly prominent for the patient age. IMPRESSION: 1. Chronic appearing periventricular white matter ischemic type changes with atrophy. 2. No acute intracranial process
[2024-02-20] MEDS ORDERED: ATORVASTATIN 80 MG TAB PO SCH (21:00)
[2024-02-20] MEDS: ATORVASTATIN 40 MG TAB PO SCH (21:21)
[2024-02-20] MEDS: HEPARIN SODIUM,PORCINE 5,000 UNIT/ML 1 ML VIAL SQ SCH (21:21)
[2024-02-20 21:23] LABS: Glucose,Whole Blood 128 mg/dL (70-110)
[2024-02-21 06:22] LABS: Glucose,Whole Blood 102 mg/dL (70-110)
[2024-02-21] MEDS: LORATADINE 10 MG TAB PO SCH (08:46)
[2024-02-21 08:53] VITALS: RESP 16; TEMP 97.7
[2024-02-21 11:44] VITALS: BP 137/75; PULSE 77
[2024-02-21 11:52] LABS: Glucose,Whole Blood 131 mg/dL (70-110)
--- NOTE | 2024-02-21 16:06 | P.DS ---
Providers Date of admission: 02/19/24 22:26 Attending physician: Dexter Bragg Consults: 02/19/24 22:25 Consult Physician Routine Consulting Provider: Matthew Nunez Consult Reason/Comments: tia Do you want consulting provider notified?: Yes Primary care physician: Stated None Hospital Course: Final Diagnosis TIA presenting with speech difficulty due to family Diabetes mellitus type 2 Hyperlipidemia Former Smoker Discharge Disposition Patient stable for discharge home. Patient was cleared by neurology and is recommended to follow-up with a neurologist in 2 to 3 weeks on discharge and family is agreeable to this plan. Patient will discharge on a combination of aspirin 81 mg daily as well as Plavix 75 mg daily together for the next 21 days, after 21 days patient will discontinue the Plavix and continue on aspirin 81 mg daily. Patient's statin was increased to a 40 mg dose for primary stroke prevention and family is agreeable to this as well as the patient. Hospital Course This is a 78-year-old male with medical history of hyperlipidemia, diabetes mellitus, patient presents to the hospital with concern of slurred speech and altered mental status that lasted about 10 minutes yesterday evening about 7 PM on the . Patient denied any visual or hearing problems, weakness or sensory deficits. He was recommended to come to the ER by family. Patient does take a statin at home his LDL is 40, he does report a smoking history but he is not currently smoking and he does not take a baby aspirin daily. Patient had no other symptoms including no fever no chills no headache no photophobia. He was admitted to the hospital to consult placed to neurology. Patient had a CT angio of the head and the neck shows no significant abnormality. Chest xray reveals no acute cardiopulmonary process. Echocardiogram reveals normal LV size and systolic function with trace pulm regurgitation and mild tricuspid regurgitation. There is trace to mild MR. An MRI was completed which reveals a chronic appearing periventricular white matter ischemic type change with atrophy there is no acute intracranial process. A1c is 6.7, troponin level was negative, lipid panel again shows a triglyceride level of 104, cholesterol 113, LDL 43, HDL of 49.2. His blood count is within normal limits. Patient is discharged home. Please see medication reconciliation for a list of current medications. Thank [facility] for allowing us to participate in the care of this patient. The impression and plan of care has been dictated by Felicia Rainey, Nurse Practitioner as directed. Dr. Ofe MD I have performed a history and physical examination and medical decision making of this patient, discussed the same with the dictator, and agree with the dictators assessment and plan as written, documented as a scribe. Based on total visit time, I have performed more than 50% of this visit. Patient Condition at Discharge: Fair Plan - Discharge Summary New Discharge Prescriptions: New Aspirin 81 mg PO DAILY #30 tab Clopidogrel [Plavix] 75 mg PO DAILY 21 Days #21 tab Atorvastatin [Lipitor] 40 mg PO HS #30 tab Continue Pregabalin [Lyrica] 75 mg PO DAILY Loratadine [Claritin] 10 mg PO DAILY metFORMIN HCL ER [Glucophage XR] 500 mg PO AC-BID Cyclobenzaprine [Flexeril] 5 mg PO DAILY Discontinued Atorvastatin [Lipitor] 10 mg PO HS Discharge Medication List Aspirin 81 mg PO DAILY #30 tab 02/20/24 [Rx] Atorvastatin [Lipitor] 40 mg PO HS #30 tab 02/20/24 [Rx] Clopidogrel [Plavix] 75 mg PO DAILY 21 Days #21 tab 02/20/24 [Rx] Cyclobenzaprine [Flexeril] 5 mg PO DAILY 02/20/24 [History] Loratadine [Claritin] 10 mg PO DAILY 02/20/24 [History] Pregabalin [Lyrica] 75 mg PO DAILY 02/20/24 [History] metFORMIN HCL ER [Glucophage XR] 500 mg PO AC-BID 02/20/24 [History] Follow up Appointment(s)/Referral(s): Alber Gao MD [REFERRING] - 03/29/24 10:00 am Tati Potter MD [REFERRING] - 02/26/24 2:00 pm (appt with Cassi Adams) Patient Instructions/Handouts: Transient Ischemic Attack (DC) Activity/Diet/Wound Care/Special Instructions: Take Aspirin and Plavix together for 21 days and then stop Plavix but continue the Aspirin. Discharge Disposition: HOME SELF-CARE
== END 2024-02-21 13:00 | disposition home or self-care (01) ==
LOC: EC 20:12 → 3SCARD 22:26
PROVIDERS: ADMIT Hospitalist; ATTEND Hospitalist
DX: G45.9 Transient cerebral ischemic attack, unspecified (principal); E78.5 Hyperlipidemia, unspecified; E11.9 Type 2 diabetes mellitus without complications; Z79.82 Long term (current) use of aspirin; Z79.84 Long term (current) use of oral hypoglycemic drugs; Z79.899 Other long term (current) drug therapy; Z87.891 Personal history of nicotine dependence
CPT/HCPCS: 96361 ×2; 96372 ×2; 96374; 99285; 36415; 94760; 93005; 93306; 97161; 97166; 92610; 80061; 80053; 82550; 84484; 85025; 85610; 85730; 83036; 71046; 70496; 70450; 70498; 70551; G0378 ×3; J2060; J1644 ×2; Q9967

== ENCOUNTER 2024-04-21 07:08 | Emergency (ER) | payer MEDICARE, OTHER ==
[2024-04-21 07:14] VITALS: RESP 18
--- NOTE | 2024-04-21 07:41 | ED ---
Head Injury HPI - General Chief complaint: Head Injury Stated complaint: fall-head injury Time Seen by Provider: 04/21/24 07:15 Source: patient, family, RN notes reviewed Mode of arrival: wheelchair Limitations: language barrier - History of Present Illness Initial comments: 78-year-old male presents emergency department with family for evaluation of a h ead injury. Patient abdominal night had a trip and fall. Patient struck the right side of his head has superficial laceration his tetanus is up-to-date. He denies any visual disturbance denies any loss conscious. Patient denies any extremity injury no chest pain or shortness of breath no other associated symptoms - Related Data Home Medications Medication Instructions Recorded Confirmed Cyclobenzaprine [Flexeril] 5 mg PO DAILY 02/20/24 02/20/24 Loratadine [Claritin] 10 mg PO DAILY 02/20/24 02/20/24 Pregabalin [Lyrica] 75 mg PO DAILY 02/20/24 02/20/24 metFORMIN HCL ER [Glucophage XR] 500 mg PO AC-BID 02/20/24 02/20/24 Previous Rx's Medication Instructions Recorded Aspirin 81 mg PO DAILY #30 tab 02/20/24 Atorvastatin [Lipitor] 40 mg PO HS #30 tab 02/20/24 Clopidogrel [Plavix] 75 mg PO DAILY 21 Days #21 tab 02/20/24 Allergies/Adverse reactions: Allergies Allergy/AdvReac Type Severity Reaction Status Date / Time No Known Allergies Allergy Verified 04/21/24 07:13 Review of Systems ROS Statement: Those systems with pertinent positive or pertinent negative responses have been documented in the HPI. ROS Other: All systems not noted in ROS Statement are negative. Past Medical History Past Medical History: Diabetes Mellitus, Hyperlipidemia History of Any Multi-Drug Resistant Organisms: None Reported Additional Past Surgical History / Comment(s): eye surgery Past Psychological History: No Psychological Hx Reported Smoking Status: Former smoker Past Alcohol Use History: Occasional Past Drug Use History: None Reported General Exam Limitations: no limitations General appearance: alert, in no apparent distress Head exam: Present: atraumatic, normocephalic. Absent: normal inspection (Superficial laceration right parietal occipital region 2 cm) Eye exam: Present: normal appearance, PERRL, EOMI. Absent: scleral icterus, conjunctival injection, periorbital swelling ENT exam: Present: normal exam, normal oropharynx, mucous membranes moist Neck exam: Present: normal inspection, full ROM. Absent: tenderness, meningismus, lymphadenopathy Respiratory exam: Present: normal lung sounds bilaterally. Absent: respiratory distress, wheezes, rales, rhonchi, stridor Cardiovascular Exam: Present: regular rate, normal rhythm, normal heart sounds. Absent: systolic murmur, diastolic murmur, rubs, gallop, clicks Neurological exam: Present: alert, oriented X3, CN II-XII intact, reflexes normal. Absent: motor sensory deficit Skin exam: Present: warm, dry, intact, normal color. Absent: rash Course Vital Signs 04/21/24 07:12 Temperature 97.6 F Pulse Rate 85 Respiratory 18 Rate Blood Pressure 121/71 O2 Sat by Pulse 98 Oximetry Medical Decision Making - Medical Decision Making Was pt. sent in by a medical professional or institution (, PA, CUT TO LENGTH OPERATOR, urgent care, hospital, or alf...) When possible be specific @ -No Did you speak to anyone other than the patient for history (EMS, parent, family, police, friend...)? What history was obtained from this source @ -No Did you review nursing and triage notes (agree or disagree)? Why? @ -I reviewed and agree with nursing and triage notes Were old charts reviewed (outside hosp., previous admission, EMS record, old EKG, old radiological studies, urgent care reports/EKG's, alf records)? Report findings @ -No old charts were reviewed Differential Diagnosis (chest pain, altered mental status, abdominal pain women, abdominal pain men, vaginal bleeding, weakness, fever, dyspnea, syncope, headache, dizziness, GI bleed, back pain, seizure, CVA, palpatations, mental health, musculoskeletal)? @ -Head injury, scalp laceration, intracranial hemorrhage, EKG interpreted by me (3pts min.). @ -None X-rays interpreted by me (1pt min.). @ -None done CT interpreted by me (1pt min.). @CT brain showing no acute intracranial hemorrhage, mass effect, degenerative changes noted, cervical spine shows bulging disc C4-C5 cervical fracture U/S interpreted by me (1pt. min.). @ -None done What testing was considered but not performed or refused? (CT, X-rays, U/S, labs)? Why? @ -None What meds were considered but not given or refused? Why? @ -None Did you discuss the management of the patient with other professionals (professionals i.e. , PA, CUT TO LENGTH OPERATOR, lab, RT, psych nurse, psych social worker, director medicare sales, teacher, dispatch officer, director case management)? Give summary @ -No Was smoking cessation discussed for >3mins.? @ -No Was critical care preformed (if so, how long)? @ -No Were there social determinants of health that impacted care today? How? (Homelessness, low income, unemployed, alcoholism, drug addiction, transportation, low edu. Level, literacy, decrease access to med. care, assisted, rehab)? @ -No Was there de-escalation of care discussed even if they declined (Discuss DNR or withdrawal of care, Hospice)? DNR status @ -No What co-morbidities impacted this encounter? (DM, HTN, Smoking, COPD, CAD, Cancer, CVA, ARF, Chemo, Hep., AIDS, mental health diagnosis, sleep apnea, morbid obesity)? @ -None Was patient admitted / discharged? Hospital course, mention meds given and route, prescriptions, significant lab abnormalities, going to OR and other pertinent info. @ -Discharge patient presented for head injury CTs were negative for acute maladies patient does have superficial scalp laceration requiring no closure patient discharged in stable condition return parameters were discussed Undiagnosed new problem with uncertain prognosis? @ -No Drug Therapy requiring intensive monitoring for toxicity (Heparin, Nitro, Insulin, Cardizem)? @ -No Were any procedures done? @ -No Diagnosis/symptom? @ -Scalp laceration superficial, head injury Acute, or Chronic, or Acute on Chronic? @ -Acute Uncomplicated (without systemic symptoms) or Complicated (systemic symptoms)? @ -Uncomplicated Side effects of treatment? @ -No Exacerbation, Progression, or Severe Exacerbation? @ -No Poses a threat to life or bodily function? How? (Chest pain, USA, MS, pneumonia, PE, COPD, DKA, ARF, appy, cholecystitis, CVA, Diverticulitis, Homicidal, Suicidal, threat to staff... and all critical care pts) @ -No Disposition Clinical Impression: Scalp laceration, Head injury Disposition: HOME SELF-CARE Condition: Stable Instructions (If sedation given, give patient instructions): Head Injury (ED) Additional Instructions: Please return to the Emergency Department if symptoms worsen or any other concerns. Is patient prescribed a controlled substance at d/c from ED?: No Referrals: Tati Potter MD [Primary Care Provider] - 1-2 days Time of Disposition: 08:54
--- NOTE | 2024-04-21 08:51 | CT ---
EXAMINATION TYPE: CT brain arvin wo con DATE OF EXAM: 04/21/2024 COMPARISON: 02/19/2024 HISTORY: Fall, cut to back RT side of head. LOC undetermined. CT DLP: 1642.5 mGycm, Automated exposure control for dose reduction was used. CONTRAST: Patient injected with 0 mL of Isovue 300. CT of the brain is performed utilizing 3 mm thick sections through the posterior fossa and 3 mm thick sections through the remaining calvarium. Study is performed within 24 hours of arrival to the hospital. No abnormal hyperdensity is present to suggest an acute intracranial hemorrhage. No mass lesion is evident. No acute infarcts are evident. Periventricular white matter hypodensity is present likely on the bas is of chronic white matter ischemic changes. Ventricles and sulci are prominent for the patient age. Paranasal sinuses and mastoid air cells within the [id number] are clear. IMPRESSIONS: 1. Chronic appearing periventricular white matter ischemic type changes with age-related atrophy. Fin dings are stable from comparison CT cervical spine. COMPARISON: None CT of the cervical spine is performed in the axial plane at 2 mm thick sections. Reconstructed image s in the coronal, and sagittal plane are reviewed on the computer. No acute fractures are evident. Vertebral body alignment is normal. Disc heights are preserved. There is some central disc bulge is present at C4-5 mild anterior thecal sac compression. No spinal c anal stenosis. Vertebral body heights are preserved. No spinal canal stenosis is evident. No neural foraminal stenosis is evident. IMPRESSION: 1. No acute osseous abnormality cervical spine. 2. Central disc bulging with mild anterior thecal sac compression C4-5
[2024-04-21] MEDS: BACITRACIN OINT 1 EACH PACKET TOPICAL ONE (09:13)
[2024-04-21 09:16] VITALS: BP 121/74; PULSE 70; TEMP 98.1
== END 2024-04-21 09:16 | disposition home or self-care (01) ==
LOC: EC 07:08
DX: S01.01XA Laceration without foreign body of scalp, initial encounter (principal); M50.321 Other cervical disc degeneration at C4-C5 level; Z87.891 Personal history of nicotine dependence; W01.0XXA Fall on same level from slipping, tripping and stumbling without subsequent striking against object, initial encounter
CPT/HCPCS: 70450; 72125; 99283

== ENCOUNTER 2024-06-22 00:18 | Emergency (ER) | payer MEDICARE, OTHER ==
[2024-06-22] MEDS ORDERED: ACETAMINOPHEN TAB 500 MG TAB ONE (01:02)
[2024-06-22] MEDS ORDERED: OXYMETAZOLINE 0.05% NASL SPRAY 1 SPRAY BOTTLE ONE (03:29)
[2024-06-22] MEDS ORDERED: AMOXIC-POT CLAV 875-125MG 1 EACH TAB ONE (03:30)
--- NOTE | 2024-07-15 08:30 | CT ---
EXAM: CT Head Without Intravenous Contrast CLINICAL HISTORY: fall, contusion to nose TECHNIQUE: Axial computed tomography images of the head/brain without intravenous contrast. CTDI is 1440.3 mGy and DLP is 45.3 mGy-cm. This CT exam was performed using one or more of the following dose reduction techniques: automated exposure control, adjustment of the mA and/or kV according to patient size, and/or use of iterative reconstruction technique. COMPARISON: No relevant prior studies available. FINDINGS: Brain:No hemorrhage or mass effect. Ventricles:No hydrocephalus. Bones/joints:Acute nasal bone fracture. Soft tissues: Moves with swollen. Sinuses:No air fluid level. Mastoid air cells:Clear. IMPRESSION: No acute hemorrhage, hydrocephalus, or mass effect. EXAM: CT Head and Maxillofacial Without Intravenous Contrast CLINICAL HISTORY: fall, contusion to nose TECHNIQUE: Axial computed tomography images of the head/brain and face without intravenous contrast. CTDI is 1440.3 mGy and DLP is 45.3 mGy-cm. This CT exam was performed using one or more of the following dose reduction techniques: automated exposure control, adjustment of the mA and/or kV according to patient size, and/or use of iterative reconstruction technique. COMPARISON: No relevant prior studies available. FINDINGS: Bones/joints:Acute nasal bone fracture. Remaining facial bones are intact Soft tissues:Nasal swelling. Sinuses:No acute sinusitis. Mastoid air cells:No mastoid effusion. Orbits:Unremarkable. IMPRESSION: Acute nasal bone fracture. Remaining facial bones are intact Radiologist: Henrry Ponce MD Electronically Signed: 06/22/24 02:55 Study ready at 01:33 and initial results transmitted at 02:55 [facility]
== END 2024-06-22 03:43 | disposition home or self-care (01) ==
LOC: EC 00:18
CPT/HCPCS: 12011; 70450; 70486; 96372; 99283

== ENCOUNTER 2024-09-14 18:26 | Emergency (ER) | payer MEDICARE, OTHER ==
[2024-09-14 19:24] LABS: Basophils % (A) 0 %; Eosinophils # (A) 0.1 k/uL (0-0.7); Eosinophils % (A) 1 %; HCT 45.6 % (39.0-53.0); HGB 15.2 gm/dL (13.0-17.5); Lymphocytes # (A) 1.6 k/uL (1.0-4.8); Lymphocytes % (A) 12 %; MCHC 33.3 g/dL (31.0-37.0); MCV 90.2 fL (80.0-100.0); Mean Platelet Volume 7.5; Monocytes # (A) 0.6 k/uL (0-1.0); Monocytes % (A) 5 %; Neutrophils # (A) 11.1 k/uL (1.3-7.7); Neutrophils % (A) 81 %; Platelet Count 226 k/uL (150-450); RBC 5.06 m/uL (4.30-5.90); RDW 13.3 % (11.5-15.5); WBC 13.6 k/uL (3.8-10.6)
--- NOTE | 2024-09-14 19:25 | ED ---
General Adult HPI - General Chief complaint: Neuro Symptoms/Deficit Stated complaint: stroke symptoms Time Seen by Provider: 09/14/24 18:52 Source: patient, RN notes reviewed, old records reviewed Mode of arrival: wheelchair Limitations: language barrier - History of Present Illness Initial comments: 79-year-old male presenting with an episode of left-sided weakness. History is obtained from the daughter who states that at approximately 1720 the patient was noted to be weak and this seemed to be more pronounced on the left side of his body. Patient has history of TIA with similar symptoms in the past. No residual numbness or weakness. Patient denies numbness or weakness at the time my evaluation. No headache. No chest pain. Daughter does state that he has had a poor appetite since the loss of his spouse several months ago. - Related Data Home Medications Medication Instructions Recorded Confirmed Cyclobenzaprine [Flexeril] 5 mg PO Q2D@2100 02/20/24 09/14/24 Loratadine [Claritin] 10 mg PO DAILY 02/20/24 09/14/24 Pregabalin [Lyrica] 75 mg PO DAILY 02/20/24 09/14/24 metFORMIN HCL ER [Glucophage XR] 500 mg PO BID 02/20/24 09/14/24 Fluticasone/Umeclidin/Vilanter 1 puff INHALATION RT-HS 09/14/24 09/14/24 [Trelegy Ellipta 100-62.5-25] Previous Rx's Medication Instructions Recorded Aspirin 81 mg PO DAILY #30 tab 02/20/24 Atorvastatin [Lipitor] 40 mg PO HS #30 tab 02/20/24 Allergies Allergy/AdvReac Type Severity Reaction Status Date / Time No Known Allergies Allergy Verified 09/14/24 19:59 Review of Systems ROS Statement: Those systems with pertinent positive or pertinent negative responses have been documented in the HPI. ROS Other: All systems not noted in ROS Statement are negative. Past Medical History Past Medical History: CVA/TIA, Diabetes Mellitus, Hyperlipidemia Additional Past Medical History / Comment(s): Speaks british, neuropathy, naturally fused spine. History of Any Multi-Drug Resistant Organisms: None Reported Additional Past Surgical History / Comment(s): eye surgery, Past Psychological History: No Psychological Hx Reported Smoking Status: Former smoker Past Alcohol Use History: Occasional Past Drug Use History: None Reported General Exam Limitations: language barrier General appearance: alert, in no apparent distress Head exam: Present: atraumatic, normocephalic Eye exam: Present: normal appearance, PERRL ENT exam: Present: normal exam Neck exam: Present: normal inspection. Absent: tenderness, meningismus Respiratory exam: Present: normal lung sounds bilaterally. Absent: respiratory distress, wheezes Cardiovascular Exam: Present: regular rate, normal rhythm GI/Abdominal exam: Present: soft. Absent: distended, tenderness, guarding Extremities exam: Present: normal inspection. Absent: calf tenderness Neurological exam: Present: alert, oriented X3, CN II-XII intact, other (NIH 0). Absent: motor sensory deficit Psychiatric exam: Present: normal affect, normal mood Skin exam: Present: warm, dry, intact Course Vital Signs 09/14/24 09/14/24 09/14/24 18:28 18:49 18:53 Temperature 97.5 F L Pulse Rate 65 105 H 97 Respiratory 18 16 16 Rate Blood Pressure 142/86 124/90 124/60 O2 Sat by Pulse 95 94 L 96 Oximetry 09/14/24 19:42 Temperature 99.0 F Pulse Rate 100 Respiratory 20 Rate Blood Pressure 130/72 O2 Sat by Pulse 95 Oximetry Medical Decision Making - Medical Decision Making Was pt. sent in by a medical professional or institution (, PA, EQUIPMENT ENGINEERING TECHNICIAN, urgent care, hospital, or skilled nursing...) When possible be specific @ -No Did you speak to anyone other than the patient for history (EMS, parent, family, police, friend...)? What history was obtained from this source @ -[Patient's daughter Did you review nursing and triage notes (agree or disagree)? Why? @ -I reviewed and agree with nursing and triage notes Were old charts reviewed (outside hosp., previous admission, EMS record, old EKG, old radiological studies, urgent care reports/EKG's, skilled nursing records)? Report findings @ -No old charts were reviewed Differential CVA Ischemic stroke, hemorrhagic stroke, brain tumor, atypical migraine, Wernicke's encephalopathy, seizure, multiple sclerosis, meningitis, encephalitis, hypoglycemia, Guillain-Ramirez, electrolytes disturbance, myasthenia gravis.... This is not meant to be an all-inclusive list EKG interpreted by me (3pts min.). @ -Sinus tachycardia with a first-degree AV block rate of 106, [place] interval 213, QRS duration 93, QTc 406 X-rays interpreted by me (1pt min.). @ -None done CT interpreted by me (1pt min.). @ -[CT brain showing chronic ischemic changes without acute process U/S interpreted by me (1pt. min.). @ -None done What testing was considered but not performed or refused? (CT, X-rays, U/S, labs)? Why? @ -None What meds were considered but not given or refused? Why? @ -None Did you discuss the management of the patient with other professionals (professionals i.e. , PA, EQUIPMENT ENGINEERING TECHNICIAN, lab, RT, psych nurse, psychosocial rehabilitation counselor, brickmason supervisor, teacher, community service officer, registered nurse hh case manager)? Give summary @ -No Was smoking cessation discussed for >3mins.? @ -No Was critical care preformed (if so, how long)? @ -No Were there social determinants of health that impacted care today? How? (Homelessness, low income, unemployed, alcoholism, drug addiction, transportation, low edu. Level, literacy, decrease access to med. care, senior care, rehab)? @ -No Was there de-escalation of care discussed even if they declined (Discuss DNR or withdrawal of care, Hospice)? DNR status @ - What co-morbidities impacted this encounter? (DM, HTN, Smoking, COPD, CAD, Cancer, CVA, ARF, Chemo, Hep., AIDS, mental health diagnosis, sleep apnea,X morbid obesity)? @History of TIA, currently being worked up for Parkinson's Was patient admitted / discharged? Hospital course, mention meds given and route, prescriptions, significant lab abnormalities, going to OR and other pertinent info. @ -[79-year-old male with an episode of left-sided limb weakness resolved upon arrival. Patient's NIH is 0. The history is obtained from the [id number] who is a patient advocate, primary caregiver and hose wrapper. Patient has no complaints himself. He has normal CBC, normal CMP. He is in sinus rhythm. His head CT is negative. I did offer an observation for TIA workup. Patient's daughter states that they have an appointment with a neurologist on Monday and he would prefer to be discharged with return parameters. Undiagnosed new problem with uncertain prognosis? @ -No Drug Therapy requiring intensive monitoring for toxicity (Heparin, Nitro, Insulin, Cardizem)? @ -No Were any procedures done? @ -No Diagnosis/symptom? @ -[TIA Acute, or Chronic, or Acute on Chronic? @ -Acute Uncomplicated (without systemic symptoms) or Complicated (systemic symptoms)? @ -[default Side effects of treatment? @ -No Exacerbation, Progression, or Severe Exacerbation? @ -No Poses a threat to life or bodily function? How? (Chest pain, USA, [place], pneumonia, PE, COPD, DKA, ARF, appy, cholecystitis, CVA, Diverticulitis, Homicidal, Suicidal, threat to staff... and all critical care pts) @ -Moderate risk - Lab Data Result diagrams: 09/14/24 19:14 09/14/24 19:14 Lab Results 09/14/24 09/14/24 09/14/24 Range/Units 19:14 19:14 19:14 WBC 13.6 H (3.8-10.6) k/uL RBC 5.06 (4.30-5.90) m/uL Hgb 15.2 (13.0-17.5) gm/dL Hct 45.6 (39.0-53.0) % MCV 90.2 (80.0-100.0) fL MCH 30.0 (25.0-35.0) pg MCHC 33.3 (31.0-37.0) g/dL RDW 13.3 (11.5-15.5) % Plt Count 226 (150-450) k/uL MPV 7.5 Neutrophils % 81 % Lymphocytes % 12 % Monocytes % 5 % Eosinophils % 1 % Basophils % 0 % Neutrophils # 11.1 H (1.3-7.7) k/uL Lymphocytes # 1.6 (1.0-4.8) k/uL Monocytes # 0.6 (0-1.0) k/uL Eosinophils # 0.1 (0-0.7) k/uL Basophils # 0.0 (0-0.2) k/uL PT 11.4 (10.0-12.5) sec INR 1.0 (<1.2) APTT 26.6 (22.0-30.0) sec Sodium 134 L (137-145) mmol/L Potassium 4.2 (3.5-5.1) mmol/L Chloride 100 (98-107) mmol/L Carbon Dioxide 26 (22-30) mmol/L Anion Gap 8 mmol/L BUN 13 (9-20) mg/dL Creatinine 0.72 (0.66-1.25) mg/dL Est GFR (CKD-EPI)AfAm >90 (>60 ml/min/1.73 sqM) Est GFR (CKD-EPI)NonAf 89 (>60 ml/min/1.73 sqM) Glucose 149 H (74-99) mg/dL Calcium 8.6 (8.4-10.2) mg/dL Total Bilirubin 0.7 (0.2-1.3) mg/dL AST 18 (17-59) U/L ALT 15 (4-49) U/L Alkaline Phosphatase 139 H (38-126) U/L Total Protein 6.7 (6.3-8.2) g/dL Albumin 3.9 (3.5-5.0) g/dL Disposition Clinical Impression: Transient cerebral ischemia Disposition: HOME SELF-CARE Condition: Fair Is patient prescribed a controlled substance at d/c from ED?: No Referrals: Tati Potter MD [Primary Care Provider] - 1-2 days Vicente Gonzáles MD [Medical Doctor] - 1-2 days Time of Disposition: 20:10
[2024-09-14 19:33] LABS: ALT 15 U/L (4-49); AST 18 U/L (17-59); African American GFR (CKD) >90 (>60 ml/min/1.73 sqM); Albumin 3.9 g/dL (3.5-5.0); Alkaline Phosphatase 139 U/L (38-126); Anion Gap 8 mmol/L; Blood Urea Nitrogen 13 mg/dL (9-20); Calcium 8.6 mg/dL (8.4-10.2); Carbon Dioxide 26 mmol/L (22-30); Chloride 100 mmol/L (98-107); Glucose 149 mg/dL (74-99); Non-African American GFR(CKD) 89 (>60 ml/min/1.73 sqM); Potassium 4.2 mmol/L (3.5-5.1); Sodium 134 mmol/L (137-145); Total Bilirubin 0.7 mg/dL (0.2-1.3); Total Protein 6.7 g/dL (6.3-8.2)
[2024-09-14 19:40] LABS: Partial Thromboplastin Time 26.6 sec (22.0-30.0); Prothrombin Time 11.4 sec (10.0-12.5)
[2024-09-14 19:48] VITALS: RESP 20
[2024-09-14] MEDS: SODIUM CHLORIDE 0.9% 500 ML 500 ML IV STA (19:50)
--- NOTE | 2024-09-14 19:56 | CT ---
EXAMINATION TYPE: CT brain wo con DATE OF EXAM: 09/14/2024 7:47 PM COMPARISON: 06/22/2024 CLINICAL INDICATION: Male, 79 years old with history of Neuro deficit, acute, stroke suspected, Left side facial droop and left side weakness x 2 hours TECHNIQUE: CT of the brain is performed utilizing 3 mm thick sections through the posterior fossa and 3 mm thick sections through the remaining calvarium. Study is performed within 24 hours of arrival to the hospital. Contrast used: mL of , (none if empty) CT DLP: 1767.5 mGycm, Automated exposure control for dose reduction was used. FINDINGS: No abnormal hyperdensity is present to suggest an acute intracranial hemorrhage. No mass lesion is evident. Some mild physiologic basal ganglia calcification is present bilaterally No acute infarcts are evident. Minimal periventricular white matter hypodensity is present, likely on the basis of chronic white matter ischemic changes. Ventricles and sulci are appropriate for the patient age. Paranasal sinuses and mastoid air cells within the [id number] are clear. IMPRESSION: 1. No acute intracranial process. Follow up MRI can be performed as clinically indicated. 2. There may be some minimal stable periventricular white matter ischemic type changes [facility], , 09/14/2024 7:53 PM
[2024-09-14] MEDS: ASPIRIN 325 MG TAB PO STA (20:17)
[2024-09-14 20:35] VITALS: BP 131/70; PULSE 92; TEMP 97.7
== END 2024-09-14 20:30 | disposition home or self-care (01) ==
LOC: EC 18:26
DX: G45.9 Transient cerebral ischemic attack, unspecified (principal); G20.A1 Parkinson's disease without dyskinesia, without mention of fluctuations; Z87.891 Personal history of nicotine dependence
CPT/HCPCS: 36415; 70450; 80053; 85025; 85610; 85730; 93005; 99285

== ENCOUNTER → 2024-11-01 | Outpatient (CLI) | payer MEDICARE, OTHER ==
[~2024-11-01] MED LIST: IODINE/POTASSIUM IODIDE 14 ML BOTTLE ONE
--- NOTE | 2024-11-03 08:08 | NM ---
EXAMINATION TYPE: NM DatScan Brain SPECT DATE OF EXAM: 11/01/2024 COMPARISON: CT brain September 14, 2024 CLINICAL INDICATION: Male, 79 years old with history of TREMOR, UNSPECIFIED; TECHNIQUE: 10 drops of Lugol's solution was administered 1 hour prior to injection as a thyroid bloc ata agent. After the administration of 4.57 mCi I-123 Ioflupane DaTscan. Images obtained 3 hours p ost injection. SPECT images of the brain were acquired with axial and coronal reconstructions. FINDINGS: The DaTSCAN demonstrates reduced uptake of tracer throughout the striata. This appearance is consistent with the bilateral loss of the pre-synaptic dopaminergic terminals. 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 [facility], , 11/03/2024 8:06 AM
== END | disposition home or self-care (01) ==
LOC: RADNMMAIN 10:52
PROVIDERS: ATTEND Psychiatry & Neurology Neurology
DX: R25.1 Tremor, unspecified (principal)
CPT/HCPCS: 78803; A9584